=== PATIENT | male | born 1960 | race Caucasian/White ===

== ENCOUNTER 2016-08-31 17:50 | Emergency (ER) | payer OTHER ==
[~2016-08-31] VITALS: Ht 180.3 cm; Wt 87.5 kg
[2016-08-31] MEDS ORDERED: METFORMIN HCL500 MG PO (18:44)
[2016-08-31] MEDS ORDERED: LANOXIN62.5 MCG PO (18:45)
[2016-08-31] MEDS ORDERED: WARFARIN SODIUM1 MG PO (18:45)
[2016-08-31] MEDS ORDERED: METOPROLOL SUCC25 MG PO (18:46)
[2016-08-31] MEDS ORDERED: LIPITOR20 MG PO (18:46)
[2016-08-31] MEDS ORDERED: FLOMAX0.4 MG PO (18:47)
[2016-08-31] MEDS ORDERED: CEPHALEXIN500 MG PO (19:40)
== END 2016-08-31 19:57 | disposition home or self-care (01) ==
LOC: ED 17:50
DX: S80.811A Abrasion, right lower leg, initial encounter (principal); I48.91 Unspecified atrial fibrillation; E11.9 Type 2 diabetes mellitus without complications; I10 Essential (primary) hypertension; F17.200 Nicotine dependence, unspecified, uncomplicated; W10.9XXA Fall (on) (from) unspecified stairs and steps, initial encounter; Z90.49 Acquired absence of other specified parts of digestive tract; Z79.899 Other long term (current) drug therapy; Z79.01 Long term (current) use of anticoagulants; Z79.84 Long term (current) use of oral hypoglycemic drugs
CPT/HCPCS: 99283

== ENCOUNTER 2017-07-04 07:05 | Day surgery (SDC) | payer OTHER ==
[~2017-07-04] VITALS: Ht 180.3 cm; Wt 95.2 kg
[~2017-07-04 07:05] MED LIST: CALCIUM 600 +1 EAC3 PO; CEPHALEXIN500 MG PO; CREON DR 24,001 EACH PO; DIGOXIN250 MCG PO; FISH OIL 1,0001 EAC2 NG; FLOMAX0.4 MG PO; LANOXIN62.5 MCG PO; LIPITOR20 MG PO; LOSARTAN POTASS50 MG PO; METFORMIN HCL500 MG PO; METOPROLOL SUCC25 MG PO; ONCE DAILY1 EACH PO; PROAIR HFA8.5 GM INH; SYMBICORT 80-10.2 GM INH; VITAMIN B122500 MCG PO; WARFARIN SODIUM1 MG PO; WARFARIN SODIUM5 MG PO
[2017-07-04] MEDS ORDERED: TOPROL XL100 MG PO (08:43)
--- NOTE | 2017-07-04 09:54 | NUR ---
PT IS ALERT, ORIENTED AND READY FOR SOME ANSWERS FROM THE SCOPES TODAY. PT HAS BEEN TROUBLED WITH POOR HEALTH FOR A NUMBER OF YEARS, EVEN TO THE POINT OF HAVING TO QUIT HIS EMPLOYMENT. PT REQUESTED PRAYER, WILL CONTINUE TO FOLLOW NEEDED
--- NOTE | 2017-07-04 10:38 | EKG ---
[facility] [address] [facility] [place], [place] [address] Signed Atrial fibrillation with rapid ventricular response Abnormal ECG When compared with ECG of 02-JUL-2017 10:19, No significant change was found Confirmed by ZEYNEP PARK MD ([id number]) on 07/04/2017 10:38:24 AM Electronically Signed By: ZEYNEP PARK MD 07/04/17 1038 PATIENT NAME: JOSE ROBBINS Electrocardiogram DATE OF : 60 PHYSICIAN: ZEYNEP PARK MD REPORT #: [id number] REPORT IS CONFIDENTIAL AND NOT TO BE RELEASED WITHOUT AUTHORIZATION
--- NOTE | 2017-07-04 12:07 | NUR ---
pt has been in rm 11 due to high rate a fib. came down 1 hr after po meds given. denies any chest pain or discomfort. rests quietly until procedure. ekg has been done per autopsy pathologist req and read on chart. iv patent.
--- NOTE | 2017-07-04 12:44 | NUR ---
07/04/17 1244 Audrey Spaulding 1238-PATIENT ARRIVED TO PACU ON 4L NC O2 SAT 97% RR EVEN. LAYING LEFT LATERAL. BITE BLOCK IN PLACE. PATIENT AROUSABLE TO VERBAL STIMULI BITE BLOCK REMOVED. AFIB HR 90'S. 1242-PATIENT DROWSY REPOSITIONING SELF TO BACK. ENCOURAGED TO PASS FLATUS.
--- NOTE | 2017-07-05 08:19 | OR ---
[facility] [address] [place], [place] [address] Signed DATE OF OPERATION: 07/04/2017 SURGEON: Nader Larson MD PREOPERATIVE DIAGNOSES: 1. Epigastric abdominal pain. 2. Daily alcohol use. 3. Personal history of colonic polyps in 2012. POSTOPERATIVE DIAGNOSES: 1. Severe diffuse gastritis. 2. Moderate hiatal hernia. 3. 4 mm polyp at 45 cm. 4. Moderate left-sided diverticulosis. 5. Prostate indurated with left side greater than right side. PROCEDURES: 1. Esophagogastroduodenoscopy with CLOtest and biopsies of the pyloric bulb, antrum, and gastroesophageal junction. 2. Colonoscopy without biopsy. ESTIMATED BLOOD LOSS: None. INDICATIONS: Jose is a 56-year-old gentleman, asked to see me for upper and lower endoscopy. He said he has been drinking at least 6-8 beers a day and he has been having quite a bit of epigastric abdominal pain. In addition, he had colonic polyps removed through the [facility] back in 2012. He was told to come back in 2015 for followup. He said the schedule was quite busy and he was not able to make that appointment. He said currently he has no lower GI complaints and there is no family history of colon cancer or polyps. In the office I gave Jose a pamphlet on both upper and lower endoscopy. We looked at those together along with the risks including, but not limited to gas bloating, crampy abdominal pain, bleeding, perforation, requiring surgery, and missed diagnosis. Also, because of his history of atrial fibrillation, his heavy full neck, and his daily alcohol use, we asked an anesthesia provider to help us with increased monitoring of sedation with propofol. He had expressed understanding and wished to proceed. DESCRIPTION OF PROCEDURE: Electronically Signed By: NADER LARSON MD 07/05/17 0819 PATIENT NAME: JOSE ROBBINS OPERATIVE REPORT DATE OF : 60 REPORT #: [id number] PHYSICIAN: NADER LARSON MD PCP: KELLY WHITE MD REPORT IS CONFIDENTIAL AND NOT TO BE RELEASED WITHOUT AUTHORIZATION [facility] [address] [place], [place] [address] Signed We initially took Jose into our endoscopy suite and we placed him in the supine position on a monitor. He was in atrial fibrillation with a heart rate between 120 and 170. He said he did not take his medications this morning. Consequently took him back out to our preop area and we gave him his daily dose of metoprolol, digoxin, and losartan. We waited a few hours and his heart rate came down into the 80s. At that point, we took him back into our endoscopy suite and placed in the supine position. A bite block was utilized for the upper endoscopy. 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 The adult gastroscope was introduced and advanced out into the third portion of the duodenum without difficulty. The duodenum itself was unremarkable. The pyloric bulb showed some erythematous changes, but the stomach showed the most erythematous changes consistent with severe alcohol-related gastritis. We took biopsies of the pyloric bulb in the antrum for pathologic review. We also took a biopsy from the antrum for CLOtest. Upon retroflexion of the scope, it was difficult to see the hiatal hernia clear, but I could see the stomach and pulled up through that area. I withdrew the scope up through the area of the GE junction. We could see the hiatal hernia better from above. He does have a moderate disruption to the Z-line, so we took a biopsy in that area for pathologic review. There was no Baxter mucosa, no distal esophagitis, no middle or upper esophagitis. After this, the gas was suctioned out and the gastroscope removed. Jose tolerated the procedure quite well. Jose was then rotated into the left lateral decubitus position. He was maintained on IV sedation with the propofol. A digital rectal exam was performed and he does have a mildly enlarged but indurated prostate gland. The left was certainly more prominent than the right. He might review that with his primary care provider. The adult colonoscope was introduced and advanced all around into the cecum under direct visualization of the camera without difficulty. His prep was moderate. He had a little bit of bilious thick liquid, most of which we could suction out. We took pictures throughout for photodocumentation. We found the polyp back at 45 cm and it was easily removed with a hot biopsy forceps. He also has moderate diverticula in the left colon. They were moderate in size, moderate in number, and scattered about. The rectum itself was unremarkable. Upon retroflexion of the scope, he has some pretty minimal routine internal hemorrhoid columns. After this, the gas was suctioned out, the colonoscope removed. Jose tolerated the procedure quite well. RECOMMENDATIONS: I will see Jose back in my office in the next 7-14 days to review his results. Nader Larson MD Electronically Signed By: NADER LARSON MD 07/05/17 0819 PATIENT NAME: JOSE ROBBINS OPERATIVE REPORT DATE OF : 60 REPORT #: [id number] PHYSICIAN: NADER LARSON MD PCP: KELLY WHITE MD REPORT IS CONFIDENTIAL AND NOT TO BE RELEASED WITHOUT AUTHORIZATION [address] [place] [address] Signed ALB/MODL /[id number] cc: BETINA Wolf MD Copies: TOSHIA HERNANDEZ ANDREW L MD ~ Electronically Signed By: NADER LARSON MD 07/05/17 0819 PATIENT NAME: JOSE ROBBINS OPERATIVE REPORT DATE OF : 60 REPORT #: [id number] PHYSICIAN: NADER LARSON MD PCP: KELLY WHITE MD REPORT IS CONFIDENTIAL AND NOT TO BE RELEASED WITHOUT AUTHORIZATION
== END 2017-07-04 13:10 | disposition home or self-care (01) ==
LOC: DS 07:05 → OPS 07:05 → DS 07:30
PROVIDERS: Colon & Rectal Surgery
PROC: 0DB48ZX Excision of Esophagogastric Junction, Via Natural or Artificial Opening Endoscopic, Diagnostic (ICD-10-PCS; 2017-07-04)
PROC: 0DBE8ZZ Excision of Large Intestine, Via Natural or Artificial Opening Endoscopic (ICD-10-PCS; 2017-07-04)
PROC: 0DB98ZX Excision of Duodenum, Via Natural or Artificial Opening Endoscopic, Diagnostic (ICD-10-PCS; principal; 2017-07-04 07:30)
PROC: 0DB68ZX Excision of Stomach, Via Natural or Artificial Opening Endoscopic, Diagnostic (ICD-10-PCS; 2017-07-04 07:30)
DX: Z12.11 Encounter for screening for malignant neoplasm of colon (principal); D12.6 Benign neoplasm of colon, unspecified; K29.70 Gastritis, unspecified, without bleeding; K29.80 Duodenitis without bleeding; K57.30 Diverticulosis of large intestine without perforation or abscess without bleeding; K44.9 Diaphragmatic hernia without obstruction or gangrene; N42.89 Other specified disorders of prostate; N40.0 Benign prostatic hyperplasia without lower urinary tract symptoms; K31.9 Disease of stomach and duodenum, unspecified; K20.9 Esophagitis, unspecified; Z86.010 Personal history of colon polyps; I48.91 Unspecified atrial fibrillation; I10 Essential (primary) hypertension; E11.9 Type 2 diabetes mellitus without complications; Z98.890 Other specified postprocedural states; Z79.84 Long term (current) use of oral hypoglycemic drugs; Z79.899 Other long term (current) drug therapy; Z79.01 Long term (current) use of anticoagulants
CPT/HCPCS: 86677; 88305; 93005; 93010; J2704; J7120